=== PATIENT | female | born 1940 | race Caucasian/White ===

== ENCOUNTER 2016-07-09 07:55 | Inpatient (IN) | payer OTHER ==
[2016-05-28 11:48] VITALS: BMI 31.0
[2016-07-09] VITALS (9 sets, daily range): BP systolic 97–167; BP diastolic 44–68; PULSE 60–95; TEMP 36.4–36.9; O2SAT 93–99; Ht 160 cm; Wt 78.2 kg
[~2016-07-09] VITALS: Ht 160 cm; Wt 78.2 kg
[~2016-07-09 07:55] MED LIST: ALPR-411 PO; AMLH/550 PO; ASPI1TAB48 PO; ATOR-22 PO; ATROPINE SULFATE 0.1 MG/ML 5ML SYR IV PRN; CALC-354 PO; CARBIDOPA PO; CEFAZOLIN 2000 MG/60 ML D5W IV SCH; CHOL20005 PO; CITA10TA8 PO; COEN1CAP40 PO; CRAN1CAP13 PO; CYAN10005 PO; CeleBREX 200 MG CAP PO SCH; ENTACAPONE PO; EpHEDrine SULFATE INJ 50 MG/ML AMP IV PRN; GABA600T PO; IBUP-1428 PO; LACT10CA3 PO; LACTATED RINGER'S 1000ML 1,000 ML IV SCH; LEVODOPA PO; LISI-729 PO; MCRK20 PO; METF1TAB85 PO; MULTTAB5; OMEG10003 PO; ONDANSETRON INJ 2 MG/ML 2 ML VIAL IV PRN; PREGABALIN 75 MG CAP PO SCH; RASA1TAB PO; ROPI1TAB PO
[2016-07-09] MEDS ORDERED: FENTANYL CITRATE INJ 50 MCG/1 ML 2 ML VIAL ONE ×3 (09:43→11:27)
[2016-07-09] MEDS ORDERED: MIDAZOLAM HCL 1 MG/ML 2ML VIAL ONE (09:43)
[2016-07-09] MEDS ORDERED: THROMBIN FOR SOLN 20000 UNIT KIT ONE (10:09)
[2016-07-09] MEDS ORDERED: BUPIVACAINE/EPINEPHRINE 0.5% MPF 1:200,000 30 ML VIAL ONE (10:09)
[2016-07-09] MEDS ORDERED: BACITRACIN 50000 UNIT VIAL ONE (10:09)
[2016-07-09] MEDS ORDERED: THROMBIN 5000 UNITS KIT ONE (10:09)
[2016-07-09] MEDS ORDERED: HEPARIN SOD (PORCINE) 1000 UNIT/ML 10 ML VIAL ONE (10:09)
--- NOTE | 2016-07-09 10:11 | History and Physical ---
History & Physical Date Jul 09, 2016. Chief Complaint LBP and neurogenic claudication History of Present Illness The patient is a 75 year old female with complaints of above who had a prior L3- S1 PSF 3 years ago and did well until a fall this winter. She developed increased LBP with radiation into hips and legs bilaterally and failed to improve with rest, PT, and oral meds. MRI demonstrated L2-3 stenosis with disc degeneration. she denies incontinence or benny weakness. Past Medical/Surgical History HTN hi chol hiatal hernia parkinsons osteoporosis spinal stenosis lumbar fusion multiple depression BTL Appy Additional History Hepatic Disease: No Endocrine Disorder: No Kidney Disease: No Hypertension: Yes Heart Disease: No Bleeding Tendencies: No Infectious Diseases: No Allergies Coded Allergies: Propoxyphene (Verified Allergy, Severe, awake but couldn't move, 07/09/16) Cyclobenzaprine (Unverified Allergy, Unknown, per PCP records , 07/09/16) Meperidine (Verified Adverse Reaction, Unknown, NAUSEA/VOMITING, 07/09/16) Home Medications Scheduled Amiloride/Hctz (Moduretic 5-50MG), 1 TAB PO QAM Aspirin (Aspirin Low Dose), 81 MG PO QAM Atorvastatin (Lipitor), 20 MG PO HS Calcium Carbonate-Cholecalcife (Caltrate 600+D), 1 TAB PO HS Cholecalciferol (Vitamin D3), 2,000 PO QAM Citalopram Hydrobromide (Celexa), 10 MG PO HS Coenzyme Q10 (Ubidecarenone) (Co Q-10), 600 MG PO BID Cranberry-Vitamin C-Vitamin E (Cranberry Plus Vitamin C), 2 TAB PO TID Cyanocobalamin (Vitamin B-12), 1,000 MCG PO QAM Gabapentin (Neurontin), 1,200 MG PO TID Lactobacillus-Inulin (Culturelle), 1 TAB PO HS Lisinopril (Prinivil), 5 MG PO HS Metformin Hcl (Metformin Hcl Er), 500 MG PO BID [place]-3 Fatty Acids ([place] Oil-1000), 1,000 MG PO BID Potassium Chloride (Klor-Con), 20 MEQ PO BID Rasagiline Mesylate (Azilect), 1 MG PO QAM Ropinirole Hydrochloride (Ropinirole Er), 8 MG PO QAM [Carbi/Levod/Entaca], 1 TAB PO TID Scheduled PRN Alprazolam (Xanax), 0.5 MG PO Q6H PRN for Anxiety Ibuprofen (Motrin), 800 MG PO TID PRN for Pain Physical Examination Skin: warm/dry Eyes: normal inspection ENT: normal ENT inspection Head: normocephalic, atraumatic Neck: supple, trachea midline Respiratory/Chest: lungs clear, no respiratory distress Cardiovascular: regular rate, rhythm Back: normal inspection, + pertinent finding (midline scar) Extremities: normal inspection, normal range of motion Neurologic/Psych: no motor/sensory deficits (bilateral resting tremors), alert , normal reflexes, oriented x 3 Diagnosis L2-3 stenosis, prior L3-S1 PSF Plan of Treatment L2-3 decompression and extension of fusion to L2
[2016-07-09] MEDS ORDERED: LEVODOPA PO ONE ×3 (10:15→10:30)
[2016-07-09] MEDS ORDERED: CARBIDOPA PO ONE ×3 (10:15→10:30)
[2016-07-09] MEDS ORDERED: ENTACAPONE PO ONE ×3 (10:15→10:30)
[2016-07-09] MEDS ORDERED: HYDROmorphone INJ 2 MG/ML SYR/VIAL ONE ×2 (10:50→11:43)
[2016-07-09] MEDS ORDERED: ONDANSETRON INJ 2 MG/ML 2 ML VIAL ONE ×2 (11:16→11:43)
[2016-07-09] MEDS ORDERED: DEXAMETHASONE SOD INJ 4 MG/ML VIAL ONE (11:16)
[2016-07-09] MEDS ORDERED: PROPOFOL IV EMULSION 10 MG/ML 20 ML VIAL IV ONE (11:16)
[2016-07-09] MEDS ORDERED: EpHEDrine SULFATE 50MG/5ML SYR ONE (11:16)
[2016-07-09] MEDS ORDERED: LIDOCAINE HCL 2% 2 ML VIAL (20MG/ML) ONE (11:16)
[2016-07-09] MEDS ORDERED: ROCURONIUM BROMIDE 10 MG/ML 5 ML VIAL ONE (11:16)
[2016-07-09] MEDS ORDERED: GLYCOPYRROLATE INJ 0.2 MG/ML VIAL ONE (11:43)
[2016-07-09] MEDS ORDERED: NEOSTIGMINE METHYLSULFATE 1 MG/ML 10ML VIAL ONE (11:43)
[2016-07-09] MEDS ORDERED: KETOROLAC TROMETHAMINE 30 MG/ML VIAL ONE (11:43)
[2016-07-09] MEDS ORDERED: SODIUM CHLORIDE 0.9% 1000ML 1,000 ML IV SCH (11:47)
--- NOTE | 2016-07-09 11:47 | [facility] Post Operative Brief Note ---
Immediate Operative Summary Operative Date Jul 09, 2016. Pre-Operative Diagnosis L2-3 stenosis; L3-S1 Posterior Spinal Fusion Post-Operative Diagnosis L2-3 Stenosis; L3-S1 Posterior Spinal Fusion Procedure(s) Performed L2-L3 Decompression; Extension of Fusion to L2; Bone Marrow Aspirate; Autograft,Allograft, Arteriocyte, Removed Lumbar Hardware L3 Surgeon Dr. Melvin Gunn Manufacturing Industrial Engineer Surgeon(s) none Estimated Blood Loss 175ML Findings dict Specimens A. explanted hardware
[2016-07-09] MEDS ORDERED: BISACODYL 10 MG SUPP PR PRN (12:00)
[2016-07-09] MEDS ORDERED: SOD PHOSPHATE/SOD BIPHOSPHATE ENEMA 132 ML BTL PR PRN (12:00)
[2016-07-09] MEDS ORDERED: PROMETHAZINE HCL INJ 12.5 MG in SODIUM CHLORIDE 0.9% 50ML 50 ML IV PRN (12:00)
[2016-07-09] MEDS ORDERED: ALUMINUM/MAGNESIUM SUSP 30 ML UDC PO PRN (12:00)
[2016-07-09] MEDS ORDERED: ONDANSETRON INJ 2 MG/ML 2 ML VIAL IV PRN (12:00)
[2016-07-09] MEDS ORDERED: LORAZEPAM INJ 0.5 MG in SYRINGE 0.75 ML IV PRN (12:00)
[2016-07-09] MEDS ORDERED: MAGNESIUM HYDROXIDE SUSP 30 ML UDC PO PRN (12:00)
[2016-07-09] MEDS ORDERED: FAMOTIDINE 20 MG TAB PO PRN (12:00)
[2016-07-09] MEDS ORDERED: ACETAMINOPHEN IV 100 ML IV PRN (12:00)
[2016-07-09] MEDS ORDERED: HYDROmorphone INJ 0.5 MG/0.5 ML SYR IV PRN (12:00)
[2016-07-09] MEDS ORDERED: METOCLOPRAMIDE HCL INJ 5 MG/ML 2 ML VIAL IV PRN (12:00)
[2016-07-09] MEDS ORDERED: NALOXONE HCL 0.4 MG/1 ML VIAL/CARP IV PRN ×2 (12:00)
[2016-07-09] MEDS: FENTANYL CITRATE INJ 50 MCG/1 ML 2 ML VIAL IV PRN ×4 (12:07→12:22)
[2016-07-09] MEDS ORDERED: HYDROmorphone INJ 1 MG/ML SYR IV PRN (12:15)
[2016-07-09] MEDS: MoRPHine SULFATE 1 MG/ML 50 ML PCA CASS IV PRN ×4 (12:15→23:09)
--- NOTE | 2016-07-09 13:17 | Anesthesiology Progress Note ---
Anesthesia Post Op Note Date & Time Jul 09, 2016 at 13:17 Vital Signs Pain Intensity: 2 Vital Signs Past 12 Hours Date Time Temp Pulse Resp B/P Pulse Ox O2 Delivery O2 Flow Rate FiO2 07/09/16 13:05 98/49 07/09/16 13:04 64 18 07/09/16 13:04 64 18 96 07/09/16 13:00 107/47 07/09/16 12:59 65 22 07/09/16 12:59 65 22 91 07/09/16 12:55 106/52 07/09/16 12:54 62 15 07/09/16 12:54 63 15 94 07/09/16 12:50 103/48 07/09/16 12:49 68 24 97 07/09/16 12:49 68 24 07/09/16 12:45 102/46 07/09/16 12:44 63 16 94 07/09/16 12:44 66 16 07/09/16 12:43 36.2 07/09/16 12:40 71 20 123/42 92 07/09/16 12:40 73 20 07/09/16 12:38 103/40 07/09/16 12:35 67 23 90 07/09/16 12:35 74 23 07/09/16 12:31 105/52 07/09/16 12:30 69 21 07/09/16 12:30 21 07/09/16 12:25 66 22 99 07/09/16 12:25 66 22 07/09/16 12:22 117/46 07/09/16 12:20 66 21 99 07/09/16 12:20 Nasal Cannula 3 07/09/16 12:20 67 21 07/09/16 12:15 65 20 132/55 99 07/09/16 12:15 64 20 07/09/16 12:10 67 19 111/71 99 07/09/16 12:10 68 19 07/09/16 12:05 69 20 146/62 99 07/09/16 12:05 69 20 07/09/16 12:01 152/65 07/09/16 12:00 36.4 72 20 152/65 97 Mask 10 07/09/16 12:00 74 18 07/09/16 12:00 74 18 97 07/09/16 08:18 36.8 79 18 129/44 97 Notes Mental Status: alert / awake / arousable, participated in evaluation Pt Amnestic to Procedure: Yes Nausea / Vomiting: adequately controlled Pain: adequately controlled Airway Patency, RR, SpO2: stable & adequate BP & HR: stable & adequate Hydration State: stable & adequate Anesthetic Complications: no major complications apparent
[2016-07-09] MEDS: HYDROmorphone INJ 1 MG/ML SYR IV PRN ×2 (13:20→13:50)
--- NOTE | 2016-07-09 13:51 | DIAGNOSTIC IMAGING REPORT ---
LUMBAR SPINE, INTRAOPERATIVE FLUOROSCOPY HISTORY: L3 hardware. L2 fusion attached to L4.. FLUOROSCOPY TIME: 3 seconds. FINDINGS: Intraoperative fluoroscopy was provided for the lumbar spine. 3 fluoroscopic spot images were obtained. L3 pedicle screws have been removed. There is posterior fusion from L2 through S1 with pedicle screws and rods. The hardware appears intact. IMPRESSION: Fluoroscopy provided for a L2-S1 posterior fusion and removal of the L3 pedicle screws.. Electronically signed by: Thien Baez M.D. 07/09/2016 1:50 PM Dictated Date/Time: 07/09/2016 1:48 PM
[2016-07-09] MEDS: SODIUM CHLORIDE 0.9% 1000ML 1,000 ML IV SCH (15:34)
[2016-07-09] MEDS: LEVO PO SCH ×2 (15:35→21:00)
[2016-07-09] MEDS: ENTACAPONE PO SCH ×2 (15:35→21:00)
[2016-07-09] MEDS: CARB PO SCH ×2 (15:35→21:00)
[2016-07-09] MEDS: GABAPENTIN 600 MG TAB PO SCH ×2 (16:00→21:55)
[2016-07-09] MEDS ORDERED: GLUCOSE 10 TABS/TUBE PO PRN (16:45)
[2016-07-09] MEDS ORDERED: HydrALAZINE HCL 20 MG/ML VIAL IV. PRN (16:45)
[2016-07-09] MEDS ORDERED: GLUCAGON FOR INJ 1 MG VIAL SQ PRN (16:45)
[2016-07-09] MEDS ORDERED: DEXTROSE 50% 50 ML SYR IV PRN (16:45)
[2016-07-09] MEDS ORDERED: GLUCOSE 40% GEL 15 GM TUBE PO PRN (16:45)
[2016-07-09] MEDS: INSULIN ASPART 100 UNITS/ML 3 ML PEN SC SCH ×2 (17:15→21:58)
[2016-07-09 17:21] LABS: BASO % 0.1 %; BASO ABS # 0.01 K/uL (0-0.2); COMPLETE YES; IG% 0.4 %; LYMPH ABS # 0.62 K/uL (1.2-3.4); MEAN CELL VOLUME 87.1 fL (80-100); MEAN CORPUSCULAR HEMOGLOBIN 28.9 pg (25-34); MEAN CORPUSCULAR HGB CONC 33.1 g/dl (32-36); MEAN PLATELET VOLUME 9.8 fL (7.4-10.4); MONO % 1.6 %; NEUT % 92.9 %; PLATELET COUNT 270 K/uL (130-400); RED BLOOD COUNT 4.02 M/uL (4.2-5.4); WHITE BLOOD COUNT 12.46 K/uL (4.8-10.8)
[2016-07-09 17:48] LABS: BUN/CREATININE RATIO 40.2 (10-20); CALCIUM 8.6 mg/dl (8.5-10.1); CREATININE 1.1 mg/dl (0.60-1.20)
[2016-07-09] MEDS: CEFAZOLIN IV 1,000 MG in DEXTROSE 5% 50ML 50 ML IV SCH (18:22)
--- NOTE | 2016-07-09 19:47 | Medical Consult ---
Consultation Date of Consultation: Jul 09, 2016. Attending Physician: Melvin Gunn M.D. Reason for Consultation: Medical management History of Present Illness This is a 75 y/o female with a history of Parkinson's disease, DM II, hypertension, hyperlipidemia, and depression who presents s/p L2 to L3 decompression and fusion with Dr. Gunn on 07/09 for medical management. The patient complains of some soreness in her back at the surgical site. She states that she is otherwise feeling well postoperatively. She has not yet eaten, passed gas, or had a bowel movement. Hawley catheter is in place and draining clear urine. The patient notes that her parkinsonian tremors have been worse lately as she had been advised to stop her rasagiline due to her surgery. Patient denies fevers, chills, sweats, chest pain, palpitations, claudication, cough, wheezing, shortness of breath, nausea, vomiting, abdominal pain, dysuria, hematuria, urinary retention, paralysis, weakness, numbness and tingling. Family History Lung cancer Lung disease Pancreatic cancer Social History Smoking Status: Never Smoker Smokeless Tobacco Use: No Alcohol Use: occasionally (wine) Drug Use: none Marital Status: Housing Status: lives with significant other Occupation Status: retired Allergies Coded Allergies: Propoxyphene (Verified Allergy, Severe, awake but couldn't move, 07/09/16) Cyclobenzaprine (Unverified Allergy, Unknown, per PCP records , 07/09/16) Meperidine (Verified Adverse Reaction, Unknown, NAUSEA/VOMITING, 07/09/16) Current Inpatient Medications Current Inpatient Medications Medications (Trade) Dose Ordered Sig/Lara Route Start Time Stop Time Status Last Admin Dose Admin Celecoxib (CeleBREX CAP) 200 mg PREOP PO 07/09/16 06:00 07/09/16 23:59 Pregabalin (Lyrica Cap) 75 mg PREOP PO 07/09/16 06:00 07/09/16 23:59 07/09/16 09:04 75 MG Amiloride/HCTZ (Moduretic 5-50MG Tab) 1 tab QAM PO 07/10/16 09:00 08/09/16 08:59 Future Hold Aspirin (Ecotrin Tab) 81 mg QAM PO 07/10/16 09:00 08/09/16 08:59 Atorvastatin Calcium (Lipitor Tab) 20 mg HS PO 07/09/16 21:00 08/08/16 20:59 Citalopram Hydrobromide (celeXA TAB) 10 mg HS PO 07/09/16 21:00 08/08/16 20:59 Cyanocobalamin (Vitamin B-12 Tab) 1,000 mcg QAM PO 07/10/16 09:00 08/09/16 08:59 Gabapentin (Neurontin Tab) 1,200 mg TID PO 07/09/16 14:00 08/08/16 13:59 07/09/16 16:00 1,200 MG Potassium Chloride (Klor-Con Tab) 20 meq BID PO 07/09/16 21:00 08/08/16 20:59 Rasagiline (Azilect) 1 mg QAM PO 07/10/16 09:00 08/09/16 08:59 Non-Formulary Medication 1 ea 1 ea TID PO 07/09/16 14:00 08/08/16 13:59 07/09/16 15:35 1 EA Promethazine HCl/ Sodium Chloride (Phenergan Inj/ Nss 50ml) 50.5 ml @ 202 mls/hr Q6H PRN IV 07/09/16 12:00 08/08/16 11:59 Ondansetron HCl (Zofran Inj) 4 mg Q6H PRN IV 07/09/16 12:00 08/08/16 11:59 Metoclopramide HCl (Reglan Inj) 10 mg Q6H PRN IV 07/09/16 12:00 08/08/16 11:59 Lorazepam 0.5 mg 0.5 mg Q8H PRN PO 07/09/16 12:00 08/08/16 11:59 Lorazepam 0.5 mg/ Syringe 1 ml @ 1 mls/min Q8H PRN IV 07/09/16 12:00 08/08/16 11:59 Sodium Chloride (Nss 1000ml) 1,000 ml @ 75 mls/hr Q13P01N IV 07/09/16 11:47 08/08/16 11:46 07/09/16 15:34 75 MLS/HR Polyethylene (Miralax Powder Packet) 17 gm Q6 PO 07/11/16 06:00 08/10/16 05:59 Bisacodyl (Dulcolax Supp) 10 mg DAILY PRN MA 07/09/16 12:00 08/08/16 11:59 Magnesium Hydroxide (Milk Of Magnesia Susp) 30 ml DAILY PRN PO 07/09/16 12:00 08/08/16 11:59 Hydromorphone HCl 0.5 mg 0.5 mg Q3H PRN IV 07/09/16 12:00 07/23/16 11:59 Future Hold Cefazolin Sodium/ Dextrose (Ancef Iv/D5 50ml) 55 ml @ 100 mls/hr Q8H IV 07/09/16 18:00 07/10/16 02:32 07/09/16 18:22 100 MLS/HR Acetaminophen 1000 mg 1,000 mg Q8H PRN PO 07/09/16 12:00 08/08/16 11:59 Acetaminophen (Ofirmev Iv) 100 ml @ 400 mls/hr Q8H PRN IV 07/09/16 12:00 08/08/16 11:59 Naloxone HCl (Narcan Inj) 0.1 mg Q5M PRN IV 07/09/16 12:00 08/08/16 11:59 Senna/Docusate Sodium (Senokot S Tab) 2 tab HS PO 07/09/16 21:00 08/08/16 20:59 Sodium Biphosphate/ Sodium Phosphate (Fleet Enema) 132 ml ONE PRN MA 07/09/16 12:00 Al Hydroxide/Mg Hydroxide (Maalox Susp) 30 ml Q6H PRN PO 07/09/16 12:00 08/08/16 11:59 Famotidine (Pepcid Tab) 20 mg Q12 PRN PO 07/09/16 12:00 08/08/16 11:59 Diphenhydramine HCl (Benadryl Cap) 25 mg Q6H PRN PO 07/09/16 12:00 08/08/16 11:59 Naloxone HCl (Narcan Inj) 0.1 mg Q5M PRN IV 07/09/16 12:00 07/23/16 11:59 Morphine Sulfate 50 mg 50 mg PRN PRN IV 07/09/16 12:00 07/23/16 11:59 07/09/16 15:17 50 MG Sodium Chloride (Nss 1000ml) 1,000 ml @ 15 mls/hr Q24H IV 07/09/16 11:47 07/23/16 11:59 Hydromorphone HCl (Dilaudid Inj) 1 mg Q3H PRN IV 07/09/16 12:15 07/23/16 12:14 Future Hold Hydralazine HCl (HydrALAZINE INJ) 10 mg Q6H PRN IV. 07/09/16 16:45 08/08/16 16:44 Insulin Aspart (novoLOG ASPART) SLIDING SCALE If C... ACHS SC 07/09/16 17:15 08/08/16 17:14 Glucose (Glucose 40% Gel) 15-30 GRAMS 15 GRAMS... UD PRN PO 07/09/16 16:45 08/08/16 16:44 Glucose (Glucose Chew Tab) 4-8 Tablets 4 Tabl... UD PRN PO 07/09/16 16:45 08/08/16 16:44 Dextrose (Dextrose 50% 50ML Syringe) 25-50ML OF 50% DW IV FOR... UD PRN IV 07/09/16 16:45 08/08/16 16:44 Glucagon (Glucagon Inj) 1 mg UD PRN SQ 07/09/16 16:45 08/08/16 16:44 Review of Systems See HPI for pertinent positives and negatives. All other systems reviewed and negative. Physical Exam Date Time Temp Pulse Resp B/P Pulse Ox O2 Delivery O2 Flow Rate FiO2 07/09/16 18:51 36.4 73 16 97/58 95 Nasal Cannula 2.0 07/09/16 17:55 36.9 95 20 109/65 99 Nasal Cannula 4.0 07/09/16 17:32 36.6 69 18 167/55 95 Nasal Cannula 2.0 07/09/16 16:30 36.5 67 16 101/58 96 Nasal Cannula 2.0 07/09/16 15:30 36.8 60 18 100/59 95 2.0 07/09/16 15:00 36.8 60 18 105/52 95 Nasal Cannula 2.0 07/09/16 14:30 Nasal Cannula 07/09/16 14:30 36.8 67 18 118/68 96 Nasal Cannula 2.0 07/09/16 14:30 Nasal Cannula 2.0 07/09/16 14:15 112/45 07/09/16 14:11 66 18 07/09/16 14:11 67 18 07/09/16 14:10 103/44 07/09/16 14:06 61 16 95 07/09/16 14:06 63 16 07/09/16 14:05 105/42 07/09/16 14:01 67 14 96 07/09/16 14:01 67 14 07/09/16 14:00 104/43 07/09/16 13:56 64 16 07/09/16 13:56 66 16 96 07/09/16 13:55 99/45 07/09/16 13:51 66 16 07/09/16 13:51 16 07/09/16 13:50 96/44 07/09/16 13:46 64 16 07/09/16 13:46 61 16 94 07/09/16 13:45 105/52 07/09/16 13:41 68 19 93 07/09/16 13:41 68 19 07/09/16 13:40 107/45 07/09/16 13:36 67 24 07/09/16 13:36 68 24 94 07/09/16 13:35 105/47 07/09/16 13:31 72 24 07/09/16 13:31 67 24 91 07/09/16 13:30 104/47 07/09/16 13:26 64 19 07/09/16 13:26 66 19 94 07/09/16 13:25 103/43 07/09/16 13:21 67 20 07/09/16 13:21 67 20 07/09/16 13:20 100/46 07/09/16 13:16 63 19 96 07/09/16 13:16 62 19 07/09/16 13:15 102/49 07/09/16 13:11 66 16 07/09/16 13:11 67 16 97 07/09/16 13:10 109/45 07/09/16 13:06 67 25 92 07/09/16 13:06 67 25 07/09/16 13:05 98/49 07/09/16 13:04 64 18 07/09/16 13:04 64 18 96 07/09/16 13:00 107/47 07/09/16 12:59 65 22 07/09/16 12:59 65 22 91 07/09/16 12:55 106/52 07/09/16 12:54 62 15 07/09/16 12:54 63 15 94 07/09/16 12:50 103/48 07/09/16 12:49 68 24 97 07/09/16 12:49 68 24 07/09/16 12:45 102/46 07/09/16 12:44 63 16 94 07/09/16 12:44 66 16 07/09/16 12:43 36.2 07/09/16 12:40 71 20 123/42 92 07/09/16 12:40 73 20 07/09/16 12:38 103/40 07/09/16 12:35 67 23 90 07/09/16 12:35 74 23 07/09/16 12:31 105/52 07/09/16 12:30 69 21 07/09/16 12:30 21 07/09/16 12:25 66 22 99 07/09/16 12:25 66 22 07/09/16 12:22 117/46 07/09/16 12:20 66 21 99 07/09/16 12:20 Nasal Cannula 3 07/09/16 12:20 67 21 07/09/16 12:15 65 20 132/55 99 07/09/16 12:15 64 20 07/09/16 12:10 67 19 111/71 99 07/09/16 12:10 68 19 07/09/16 12:05 69 20 146/62 99 07/09/16 12:05 69 20 07/09/16 12:01 152/65 07/09/16 12:00 36.4 72 20 152/65 97 Mask 10 07/09/16 12:00 74 18 07/09/16 12:00 74 18 97 07/09/16 08:18 36.8 79 18 129/44 97 General Appearance: WD/WN, no apparent distress, + obese Head: normocephalic, atraumatic Eyes: normal inspection, PERRL, EOMI ENT: normal ENT inspection, hearing grossly normal, pharynx normal Neck: supple, no JVD, trachea midline Respiratory/Chest: lungs clear, normal breath sounds, no respiratory distress Cardiovascular: regular rate, rhythm, no gallop, no murmur Abdomen/GI: normal bowel sounds, non tender, soft Extremities/Musculoskelatal: normal inspection, no calf tenderness, no pedal edema Neurologic/Psych: alert, normal mood/affect, oriented x 3, + pertinent finding (tremors, masked facies of Parkinson's) Skin: normal color, warm/dry, no rash Laboratory Results Last 24 Hours Test 07/09/16 09:16 07/09/16 12:08 07/09/16 14:23 07/09/16 16:54 Bedside Glucose 126 mg/dl 185 mg/dl 185 mg/dl 159 mg/dl Test 07/09/16 17:00 White Blood Count 12.46 K/uL Red Blood Count 4.02 M/uL Hemoglobin 11.6 g/dL Hematocrit 35.0 % Mean Corpuscular Volume 87.1 fL Mean Corpuscular Hemoglobin 28.9 pg Mean Corpuscular Hemoglobin Concent 33.1 g/dl Platelet Count 270 K/uL Mean Platelet Volume 9.8 fL Neutrophils (%) (Auto) 92.9 % Lymphocytes (%) (Auto) 5.0 % Monocytes (%) (Auto) 1.6 % Eosinophils (%) (Auto) 0.0 % Basophils (%) (Auto) 0.1 % Neutrophils # (Auto) 11.58 K/uL Lymphocytes # (Auto) 0.62 K/uL Monocytes # (Auto) 0.20 K/uL Eosinophils # (Auto) 0.00 K/uL Basophils # (Auto) 0.01 K/uL RDW Standard Deviation 44.3 fL RDW Coefficient of Variation 13.9 % Immature Granulocyte % (Auto) 0.4 % Immature Granulocyte # (Auto) 0.05 K/uL Sodium Level 136 mmol/L Potassium Level 5.0 mmol/L Chloride Level 101 mmol/L Carbon Dioxide Level 27 mmol/L Anion Gap 8.0 mmol/L Blood Urea Nitrogen 44 mg/dl Creatinine 1.10 mg/dl Est Creatinine Clear Calc Drug Dose 42.4 ml/min Estimated GFR () 56.1 Estimated GFR (Non- 48.4 BUN/Creatinine Ratio 40.2 Random Glucose 164 mg/dl Calcium Level 8.6 mg/dl Assessment & Plan 75 y/o female with a history of Parkinson's disease, DM II, hypertension, hyperlipidemia, and depression who presents s/p L2 to L3 decompression and fusion with Dr. Gunn on 07/09 for medical management. -Pain management, DVT prophylaxis, and PT/OT as per primary team Parkinson's disease -Continue rasagiline 1 mg PO qd, ropinirole 8 mg PO qd, and carbidopa/levodopa/ entacapone 31.25/125/200 PO TID Diabetes mellitus type 2--unknown last hemoglobin A1c -Hold metformin -Insulin sliding scale -Check BSGs q ac and qhs -Check hemoglobin A1c HTN--stable -Hold amiloride/HCTZ while receiving IV fluids -Hold lisinopril until renal function checked and stable -Cover with hydralazine 10 mg IV q6h prn SBP >180 HLD -Continue atorvastatin 20 mg PO qd Depression -Continue Celexa 10 mg PO qd Code Status -Level I, FULL RESUSCITATION STATUS Thank you for this consultation. We will continue to follow. I agree with PA assessment and plan and have seen and examined pt Consulted for medical management s/p lumbar surgery Hypertensive at this time Cont meds for parkinsons ISS for DM II
[2016-07-09] MEDS: ATORVASTATIN 20 MG TAB PO SCH (21:54)
[2016-07-09] MEDS: DOCUSATE SODIUM/SENNA 50/8.6MG TAB PO SCH (21:55)
[2016-07-09] MEDS: POTASSIUM CHLORIDE 20 MEQ TABCR PO SCH (21:55)
[2016-07-09] MEDS: CITALOPRAM 20 MG TAB PO SCH (21:56)
[2016-07-09] MEDS ORDERED: NURSING DECISION MEDICATION ORDER SCH (23:00)
[2016-07-09] MEDS ORDERED: COUGH DROP (SUGAR FREE) LOZ 24 LOZ/1 BOX ONE (23:21)
[2016-07-10] VITALS (9 sets, daily range): BP systolic 102–120; BP diastolic 50–78; PULSE 60–71; TEMP 36.4–36.8; O2SAT 92–100
[2016-07-10] MEDS ORDERED: COUGH DROP (SUGAR FREE) LOZ 24 LOZ/1 BOX PO PRN (00:15)
[2016-07-10] MEDS: CEFAZOLIN IV 1,000 MG in DEXTROSE 5% 50ML 50 ML IV SCH (01:36)
[2016-07-10] MEDS: SODIUM CHLORIDE 0.9% 1000ML 1,000 ML IV SCH (01:36)
[2016-07-10] MEDS ORDERED: OXYCODONE HCL IR 5 MG TAB (IMMEDIATE RELEASE) PO PRN ×2 (06:00→10:15)
[2016-07-10 06:07] LABS: COMPLETE YES; HEMATOCRIT 30.7 % (37-47); IG% 0.3 %; LYMPH % 7.9 %; LYMPH ABS # 0.87 K/uL (1.2-3.4); MEAN CORPUSCULAR HGB CONC 32.9 g/dl (32-36); MEAN PLATELET VOLUME 9.7 fL (7.4-10.4); MONO % 10.8 %; PLATELET COUNT 252 K/uL (130-400); RED BLOOD COUNT 3.61 M/uL (4.2-5.4)
[2016-07-10 06:33] LABS: ESTIMATED AVERAGE GLUCOSE 131 mg/dl; HA1C FLAG Normal (Normal)
[2016-07-10 06:36] LABS: BUN/CREATININE RATIO 38.6 (10-20); CALCIUM 8.5 mg/dl (8.5-10.1); CREATININE 0.87 mg/dl (0.60-1.20); POTASSIUM 4.5 mmol/L (3.5-5.1)
[2016-07-10] MEDS: MoRPHine SULFATE 1 MG/ML 50 ML PCA CASS IV PRN (06:58)
[2016-07-10] MEDS ORDERED: NURSING VERBAL MED ORDER ONE ×4 (07:00→14:45)
[2016-07-10] MEDS ORDERED: MICONAZOLE NITRATE POWDER 43 GM EXT PRN (07:15)
[2016-07-10] MEDS: ENTACAPONE PO SCH ×3 (07:24→16:38)
[2016-07-10] MEDS: CARB PO SCH ×3 (07:24→16:38)
[2016-07-10] MEDS: LEVO PO SCH ×3 (07:24→16:38)
--- NOTE | 2016-07-10 07:32 | Hospitalist Progress Note ---
Hospitalist Progress Note Date of Service Jul 10, 2016. Subjective Pt evaluation today including: conversation w/ patient, physical exam, chart review, lab review, review of studies, conversation w/ quantitative consultant Pain: minimal low back pain PO Intake: good Voiding: lujan catheter in place The patient was seen and examined this morning. Patient reports feeling well. She reports some soreness in her lower back but states "this is normal". She has been able to ambulate about the room without any difficulty. Tolerated breakfast fine. She denies having any chest pain, chest tightness, abdominal pain, shortness of breath, nausea, vomiting, diarrhea, or constipation. The patient make appointment coming her insurance won't cover admission, she states for 3 midnight, and she is requesting rehabilitation at time of discharge. Additional Comments: ROS: Constitutional: No fever, chills, sweats, fatigue or weakness, + overweight Eyes: No diplopia, no changes in vision ENT: No sore throat, tinnitus, or trouble swallowing Respiratory: No shortness of breath, No dyspnea at rest or on exertion, no cough or sputum Cardiovascular: No chest pain, palpitations, or flutter Abdomen: No pain, No constipation, No diarrhea, No nausea, No vomiting Musculoskeletal: No calf pain, No joint pain, No swelling Genitourinary : No dysuria or urinary frequency, No hematuria + Lujan catheter in place Neurologic: No numbness/tingling, no difficulty with ambulation, no sensory or motor deficits Psychiatric: No depression or anxiety symptoms Endocrine: No fatigue, No weight changes Integumentary: No itch, No rash Objective Vital Signs Date Time Temp Pulse Resp B/P Pulse Ox O2 Delivery O2 Flow Rate FiO2 07/10/16 03:20 36.8 71 16 108/62 95 Nasal Cannula 2.0 07/09/16 23:20 Nasal Cannula 2.0 07/09/16 23:00 36.6 72 18 103/59 93 Nasal Cannula 2.0 07/09/16 18:51 36.4 73 16 97/58 95 Nasal Cannula 2.0 07/09/16 17:55 36.9 95 20 109/65 99 Nasal Cannula 4.0 07/09/16 17:32 36.6 69 18 167/55 95 Nasal Cannula 2.0 07/09/16 16:30 36.5 67 16 101/58 96 Nasal Cannula 2.0 07/09/16 15:36 Nasal Cannula 2.0 07/09/16 15:30 36.8 60 18 100/59 95 2.0 07/09/16 15:00 36.8 60 18 105/52 95 Nasal Cannula 2.0 07/09/16 14:30 Nasal Cannula 07/09/16 14:30 36.8 67 18 118/68 96 Nasal Cannula 2.0 07/09/16 14:30 Nasal Cannula 2.0 07/09/16 14:15 112/45 07/09/16 14:11 66 18 07/09/16 14:11 67 18 07/09/16 14:10 103/44 07/09/16 14:06 61 16 95 07/09/16 14:06 63 16 07/09/16 14:05 105/42 07/09/16 14:01 67 14 96 07/09/16 14:01 67 14 07/09/16 14:00 104/43 07/09/16 13:56 64 16 07/09/16 13:56 66 16 96 07/09/16 13:55 99/45 07/09/16 13:51 66 16 07/09/16 13:51 16 07/09/16 13:50 96/44 07/09/16 13:46 64 16 07/09/16 13:46 61 16 94 07/09/16 13:45 105/52 07/09/16 13:41 68 19 93 07/09/16 13:41 68 19 07/09/16 13:40 107/45 07/09/16 13:36 67 24 07/09/16 13:36 68 24 94 07/09/16 13:35 105/47 07/09/16 13:31 72 24 07/09/16 13:31 67 24 91 07/09/16 13:30 104/47 07/09/16 13:26 64 19 07/09/16 13:26 66 19 94 07/09/16 13:25 103/43 07/09/16 13:21 67 20 07/09/16 13:21 67 20 07/09/16 13:20 100/46 07/09/16 13:16 63 19 96 07/09/16 13:16 62 19 07/09/16 13:15 102/49 3/23/17 13:11 66 16 07/09/16 13:11 67 16 97 07/09/16 13:10 109/45 07/09/16 13:06 67 25 92 07/09/16 13:06 67 25 07/09/16 13:05 98/49 07/09/16 13:04 64 18 07/09/16 13:04 64 18 96 07/09/16 13:00 107/47 07/09/16 12:59 65 22 07/09/16 12:59 65 22 91 07/09/16 12:55 106/52 07/09/16 12:54 62 15 07/09/16 12:54 63 15 94 07/09/16 12:50 103/48 07/09/16 12:49 68 24 97 07/09/16 12:49 68 24 07/09/16 12:45 102/46 07/09/16 12:44 63 16 94 07/09/16 12:44 66 16 07/09/16 12:43 36.2 07/09/16 12:40 71 20 123/42 92 07/09/16 12:40 73 20 07/09/16 12:38 103/40 07/09/16 12:35 67 23 90 07/09/16 12:35 74 23 07/09/16 12:31 105/52 07/09/16 12:30 69 21 07/09/16 12:30 21 07/09/16 12:25 66 22 99 07/09/16 12:25 66 22 07/09/16 12:22 117/46 07/09/16 12:20 66 21 99 07/09/16 12:20 Nasal Cannula 3 07/09/16 12:20 67 21 07/09/16 12:15 65 20 132/55 99 07/09/16 12:15 64 20 07/09/16 12:10 67 19 111/71 99 07/09/16 12:10 68 19 07/09/16 12:05 69 20 146/62 99 07/09/16 12:05 69 20 07/09/16 12:01 152/65 07/09/16 12:00 36.4 72 20 152/65 97 Mask 10 07/09/16 12:00 74 18 07/09/16 12:00 74 18 97 07/09/16 08:18 36.8 79 18 129/44 97 Physical Exam Notes: Physical exam General: awake, alert, no apparent distress Head: Normocephalic, atraumatic ENT: PERRL, EOMI, no pharyngeal exudate, mucous membranes moist Chest: Clear to auscultation, on room air, no adventitious breath sounds Cardiac: Regular rate and rhythm, no murmur, no JVD, normal peripheral pulses, good capillary refill Abdominal: NABS x 4 quadrants, soft, nontender, no rebound, guarding or tenderness Back: back with bandage in place, no focal point tenderness along spine, + EDI drain in place Extremities: Normal inspection, no peripheral edema or erythema, calfs nontender to palpation Psych: Normal mood and affect Neuro: AAO x 3, + Parkinson's disease with mild resting tremor, speech is clear Laboratory Results Last 24 Hours Test 07/09/16 09:16 07/09/16 12:08 07/09/16 14:23 07/09/16 16:54 Bedside Glucose 126 mg/dl 185 mg/dl 185 mg/dl 159 mg/dl Test 07/09/16 17:00 07/09/16 21:03 07/10/16 05:26 White Blood Count 12.46 K/uL 11.00 K/uL Red Blood Count 4.02 M/uL 3.61 M/uL Hemoglobin 11.6 g/dL 10.1 g/dL Hematocrit 35.0 % 30.7 % Mean Corpuscular Volume 87.1 fL 85.0 fL Mean Corpuscular Hemoglobin 28.9 pg 28.0 pg Mean Corpuscular Hemoglobin Concent 33.1 g/dl 32.9 g/dl Platelet Count 270 K/uL 252 K/uL Mean Platelet Volume 9.8 fL 9.7 fL Neutrophils (%) (Auto) 92.9 % 81.0 % Lymphocytes (%) (Auto) 5.0 % 7.9 % Monocytes (%) (Auto) 1.6 % 10.8 % Eosinophils (%) (Auto) 0.0 % 0.0 % Basophils (%) (Auto) 0.1 % 0.0 % Neutrophils # (Auto) 11.58 K/uL 8.91 K/uL Lymphocytes # (Auto) 0.62 K/uL 0.87 K/uL Monocytes # (Auto) 0.20 K/uL 1.19 K/uL Eosinophils # (Auto) 0.00 K/uL 0.00 K/uL Basophils # (Auto) 0.01 K/uL 0.00 K/uL RDW Standard Deviation 44.3 fL 42.8 fL RDW Coefficient of Variation 13.9 % 13.8 % Immature Granulocyte % (Auto) 0.4 % 0.3 % Immature Granulocyte # (Auto) 0.05 K/uL 0.03 K/uL Sodium Level 136 mmol/L 138 mmol/L Potassium Level 5.0 mmol/L 4.5 mmol/L Chloride Level 101 mmol/L 103 mmol/L Carbon Dioxide Level 27 mmol/L 28 mmol/L Anion Gap 8.0 mmol/L 7.0 mmol/L Blood Urea Nitrogen 44 mg/dl 34 mg/dl Creatinine 1.10 mg/dl 0.87 mg/dl Est Creatinine Clear Calc Drug Dose 42.4 ml/min 53.6 ml/min Estimated GFR () 56.1 74.5 Estimated GFR (Non- 48.4 64.3 BUN/Creatinine Ratio 40.2 38.6 Random Glucose 164 mg/dl 134 mg/dl Estimated Average Glucose 131 mg/dl Hemoglobin A1c 6.2 % Calcium Level 8.6 mg/dl 8.5 mg/dl Bedside Glucose 203 mg/dl Assessment and Plan 75 y/o female with a history of Parkinson's disease, DM II, hypertension, hyperlipidemia, and depression who presents s/p L2 to L3 decompression and fusion with Dr. Gunn on 07/09 for medical management. L2 to L3 decompression and fusion with Dr. Dr. Lizarraga on 07/09/16 - Postop day #2 - Pain management, DVT prophylaxis, and PT/OT as per primary team - Patient states her pain is well controlled at this time Parkinson's disease -Continue rasagiline 1 mg PO qd, ropinirole 8 mg PO qd, and carbidopa/levodopa/ entacapone 31.25/125/200 PO TID DM type II -Hold metformin -Insulin sliding scale -Check BSGs q ac and qhs - Hgb A1C=6.2 HTN--stable -Hold amiloride/HCTZ while receiving IV fluids -Hold lisinopril until renal function checked and stable -Cover with hydralazine 10 mg IV q6h prn SBP >180 HLD -Continue atorvastatin 20 mg PO qd Depression -Continue Celexa 10 mg PO qd CODE STATUS: FULL CODE Disposition: Will need rehab after admission stay, await 3 midnight ROBERT yi to assist discharge planning
[2016-07-10] MEDS: INSULIN ASPART 100 UNITS/ML 3 ML PEN SC SCH ×4 (08:00→21:30)
[2016-07-10] MEDS ORDERED: AMILORIDE/HCTZ 5-50 MG TAB PO SCH (09:00)
[2016-07-10] MEDS ORDERED: CYANOCOBALAMIN 500 MCG TAB (VIT B-12) PO SCH (09:00)
[2016-07-10] MEDS: ASPIRIN 81 MG ECTAB PO SCH (09:24)
[2016-07-10] MEDS: GABAPENTIN 600 MG TAB PO SCH ×3 (09:25→18:21)
[2016-07-10] MEDS: ROPINIROLE HYDROCHLORIDE PO SCH (09:25)
[2016-07-10] MEDS: POTASSIUM CHLORIDE 20 MEQ TABCR PO SCH ×2 (09:25→18:21)
--- NOTE | 2016-07-10 09:41 | Orthopedic Progress Note ---
Orthopedic Progress Note Date of Service Jul 10, 2016. Subjective Post OP Day: 1 Reports: feeling well, using MALE IMPERSONATOR, Denies: SOB, calf pain, chest pain, complaints , light headedness, nausea / vomiting Objective calves soft nontender, N/V intact, dressing C/D/I, A&O x3, hemovac drainage Date Time Temp Pulse Resp B/P Pulse Ox O2 Delivery O2 Flow Rate FiO2 07/10/16 08:00 Nasal Cannula 2.0 07/10/16 07:57 36.5 62 20 114/70 98 Nasal Cannula 2.0 07/10/16 03:20 36.8 71 16 108/62 95 Nasal Cannula 2.0 07/09/16 23:20 Nasal Cannula 2.0 07/09/16 23:00 36.6 72 18 103/59 93 Nasal Cannula 2.0 07/09/16 18:51 36.4 73 16 97/58 95 Nasal Cannula 2.0 07/09/16 17:55 36.9 95 20 109/65 99 Nasal Cannula 4.0 07/09/16 17:32 36.6 69 18 167/55 95 Nasal Cannula 2.0 07/09/16 16:30 36.5 67 16 101/58 96 Nasal Cannula 2.0 07/09/16 15:36 Nasal Cannula 2.0 07/09/16 15:30 36.8 60 18 100/59 95 2.0 07/09/16 15:00 36.8 60 18 105/52 95 Nasal Cannula 2.0 07/09/16 14:30 Nasal Cannula 07/09/16 14:30 36.8 67 18 118/68 96 Nasal Cannula 2.0 07/09/16 14:30 Nasal Cannula 2.0 07/09/16 14:15 112/45 07/09/16 14:11 66 18 07/09/16 14:11 67 18 07/09/16 14:10 103/44 07/09/16 14:06 61 16 95 07/09/16 14:06 63 16 07/09/16 14:05 105/42 07/09/16 14:01 67 14 96 07/09/16 14:01 67 14 07/09/16 14:00 104/43 07/09/16 13:56 64 16 07/09/16 13:56 66 16 96 07/09/16 13:55 99/45 3/23/17 13:51 66 16 07/09/16 13:51 16 07/09/16 13:50 96/44 07/09/16 13:46 64 16 07/09/16 13:46 61 16 94 07/09/16 13:45 105/52 07/09/16 13:41 68 19 93 07/09/16 13:41 68 19 07/09/16 13:40 107/45 07/09/16 13:36 67 24 07/09/16 13:36 68 24 94 07/09/16 13:35 105/47 07/09/16 13:31 72 24 07/09/16 13:31 67 24 91 07/09/16 13:30 104/47 07/09/16 13:26 64 19 07/09/16 13:26 66 19 94 07/09/16 13:25 103/43 07/09/16 13:21 67 20 07/09/16 13:21 67 20 07/09/16 13:20 100/46 07/09/16 13:16 63 19 96 07/09/16 13:16 62 19 07/09/16 13:15 102/49 07/09/16 13:11 66 16 07/09/16 13:11 67 16 97 07/09/16 13:10 109/45 07/09/16 13:06 67 25 92 07/09/16 13:06 67 25 07/09/16 13:05 98/49 07/09/16 13:04 64 18 07/09/16 13:04 64 18 96 07/09/16 13:00 107/47 07/09/16 12:59 65 22 07/09/16 12:59 65 22 91 07/09/16 12:55 106/52 07/09/16 12:54 62 15 07/09/16 12:54 63 15 94 07/09/16 12:50 103/48 07/09/16 12:49 68 24 97 07/09/16 12:49 68 24 07/09/16 12:45 102/46 07/09/16 12:44 63 16 94 07/09/16 12:44 66 16 07/09/16 12:43 36.2 07/09/16 12:40 71 20 123/42 92 07/09/16 12:40 73 20 07/09/16 12:38 103/40 07/09/16 12:35 67 23 90 07/09/16 12:35 74 23 07/09/16 12:31 105/52 07/09/16 12:30 69 21 07/09/16 12:30 21 07/09/16 12:25 66 22 99 07/09/16 12:25 66 22 07/09/16 12:22 117/46 07/09/16 12:20 66 21 99 07/09/16 12:20 Nasal Cannula 3 07/09/16 12:20 67 21 07/09/16 12:15 65 20 132/55 99 07/09/16 12:15 64 20 07/09/16 12:10 67 19 111/71 99 07/09/16 12:10 68 19 07/09/16 12:05 69 20 146/62 99 07/09/16 12:05 69 20 07/09/16 12:01 152/65 07/09/16 12:00 36.4 72 20 152/65 97 Mask 10 07/09/16 12:00 74 18 07/09/16 12:00 74 18 97 Laboratory Results 24 Hours: Test 07/09/16 17:00 07/10/16 05:26 White Blood Count 12.46 K/uL 11.00 K/uL Red Blood Count 4.02 M/uL 3.61 M/uL Hemoglobin 11.6 g/dL 10.1 g/dL Hematocrit 35.0 % 30.7 % Mean Corpuscular Volume 87.1 fL 85.0 fL Mean Corpuscular Hemoglobin 28.9 pg 28.0 pg Mean Corpuscular Hemoglobin Concent 33.1 g/dl 32.9 g/dl Platelet Count 270 K/uL 252 K/uL Mean Platelet Volume 9.8 fL 9.7 fL Neutrophils (%) (Auto) 92.9 % 81.0 % Lymphocytes (%) (Auto) 5.0 % 7.9 % Monocytes (%) (Auto) 1.6 % 10.8 % Eosinophils (%) (Auto) 0.0 % 0.0 % Basophils (%) (Auto) 0.1 % 0.0 % Neutrophils # (Auto) 11.58 K/uL 8.91 K/uL Lymphocytes # (Auto) 0.62 K/uL 0.87 K/uL Monocytes # (Auto) 0.20 K/uL 1.19 K/uL Eosinophils # (Auto) 0.00 K/uL 0.00 K/uL Basophils # (Auto) 0.01 K/uL 0.00 K/uL Assessment & Plan Assessment: looks good POD 1, start PT, scd's, bowel regimen, d/c wednesday to rehab? if medically stable, medicine on board Discharge Planning Discharge Planning: home Pain Management: Oxy IR DVT Prophylaxis: SCDs
[2016-07-10] MEDS: RASAGILINE 0.5 MG TAB PO SCH (10:18)
--- NOTE | 2016-07-10 13:02 | Discharge Instructions ---
Discharge Instructions Date of Service Jul 10, 2016. Admission Reason for Admission: Lumbar Spinal Stenosis Discharge Discharge Diagnosis / Problem: Lumbar Spinal Stenosis Discharge Goals Goal(s): Decrease discomfort, Improve function, Increase independence Activity Recommendations Activity Limitations: as noted below Lifting Limitations: no more than 5 pounds Exercise/Sports Limitations: none May Resume Sexual Activity: after follow-up appointment Shower/Bathe: may shower/bathe in 3 days . Instructions / Follow-Up Instructions / Follow-Up ACTIVITY RECOMMENDATIONS: SELF CARE INSTRUCTIONS AFTER THORACIC/LUMBAR FUSIONS 1. You may walk to your tolerance. It is good exercise for your legs and back. Expect some back and intermittent leg aches and pains. 2. You may perform "counter-top" level activities (make a sandwich, marito with a project, etc.). 3. No bending or lifting of more than 10 pounds or back twisting of any nature (roll like a log when turning in bed). 4. You may ride in a car for 20-30 minutes at a time. No driving until after your first visit with your doctor. 5. Frequent changes of position and restricting sitting to 30 minutes at a time will help limit the amount of back spasms and stiffness you may experience. 6. You may discontinue the use of ambulatory aids (cane, crutches, etc.) once your strength and confidence allow. 7. You may district plant engineer the shower and let water strike your incision when you arrive home at least once daily. Do not take a tub bath, sit in a hot tub or go into a swimming pool until after your first recheck in the office. SPECIAL CARE INSTRUCTIONS: VERY IMPORTANT TO READ AND REVIEW A. Your surgical incision has been closed with a cosmetic suture under the skin that will dissolve in about 6 weeks. In 14 days, you can use a pair of clean scissors and cut the suture that is left outside of the skin at the ends of your incision. 1. The small skin tapes can be removed 7 days after surgery if they have not fallen off by that point. 2. You may keep the wound open to air as much as possible to promote healing after post-op day number 5 unless told otherwise by your doctor. 3. If you think the wound looks like it is becoming infected (redness or worsening drainage) and/or you are experiencing fever, chill or worsening back pain and muscle spasms, contact the office so that we may evaluate you as soon as possible. B. Complications are uncommon, but please contact us if you have any signs or symptoms of: 1. wound infection (fever higher than 102.5 degrees F, redness, separation of wound, drainage, or increasing pain from the incision) 2. blood clots in legs (pain, swelling, redness and warmth in legs) 3. urinary tract infection (fever higher than 102.5 degrees F, burning upon urination or increased frequency of urination) 4. nerve problems (inability to walk on your toes or heels, numbness, loss of bowel or bladder control) 5. any other symptoms that concern you C. Please call the office at if you have any concerns or questions about your operation or recovery. D. No smoking! Smoking drastically decreases the chance of a solid fusion. E. Do not take any anti-inflammatory medications (Indocin, Advil, Motrin, Aspirin, Naprosyn, etc.) as these may inhibit the chance of a solid fusion. Tylenol is okay to take for pain. MANAGING PAIN AFTER SPINAL SURGERY 1. Narcotic medication is intended for short-term use and will be provided for surgical pain. Surgical pain usually lasts for a period of 4-6 weeks. Narcotic medication includes Percocet, Vicodin, Darvocet, Tylenol #3 or Lortab. 2. Longer-term pain is more appropriately treated with non-narcotic medication such as Tylenol ES. 3. Muscle spasm is not appropriately treated with narcotics. Muscle relaxers such as Soma, Flexeril or Skelaxin can be used along with Tylenol ES. 4. Remember that we all live with some "aches and pains". This is not unusual or uncommon after an injury or as we get older. a. Back pain is expected and may include muscle spasms for 4 to 6 weeks after surgery. The pain should gradually improve. If the pain worsens for no apparent reason, please contact the office. b. Intermittent leg pain may also be experienced and should not be concerned about unless it worsens for no apparent reason. If so, please contact the office. 5. We will provide appropriate medication within the normal guidelines of their prescribed use. We will also be very cautious and aware of potential abuse and extended duration of patients' medication needs. a. Pain medications are for your comfort and to assist with sleep and rest so that the tissue can heal. They are not provided in order to return to normal activity and should not be used through the day. To do so or worsening pain at night can result from ongoing tissue damage and development of tolerance to the prescribed medicine. 6. Please allow 2-3 days to process refills. Prescriptions will not be mailed but must be picked up at the office. FOLLOW UP VISIT: Keep your scheduled follow-up appointment. Any questions, please call the office at . Current Hospital Diet Patient's current hospital diet: Diabetes Type 2 Diet Discharge Diet Recommended Diet: Diabetes Type 2 Diet Procedures Procedures Performed: L2-L3 Decompression; Extension of Fusion to L2; Bone Marrow Aspirate; Autograft,Allograft, Arteriocyte, Removed Lumbar Hardware L3 Pending Studies Studies pending at discharge: no Laboratory Results Hemoglobin A1c Test 07/09/16 17:00 Range/Units Estimated Average Glucose 131 mg/dl Hemoglobin A1c 6.2 H 4.5-5.6 % Medical Emergencies . Who to Call and When: Medical Emergencies: If at any time you feel your situation is an emergency, please call 911 immediately. . Non-Emergent Contact Non-Emergency issues call your: Surgeon Call Non-Emergent contact if: temperature is above 101, your pain is not controlled, wound has increased drainage, you have any medication questions . "Provider Documentation" section prepared by Melvin Gunn. VTE Core Measure Inpt VTE Proph given/why not?: [place] [place] Drug Monitoring Program Search Results: patient reviewed within database
[2016-07-10] MEDS: ACETAMINOPHEN 500 MG TAB PO PRN (18:47)
[2016-07-10] MEDS: DOCUSATE SODIUM/SENNA 50/8.6MG TAB PO SCH (21:18)
[2016-07-10] MEDS: ATORVASTATIN 20 MG TAB PO SCH (21:18)
[2016-07-10] MEDS: CITALOPRAM 20 MG TAB PO SCH (21:20)
[2016-07-10] MEDS: LORAZEPAM 0.5 MG TAB PO PRN (23:58)
[2016-07-11] MEDS: ACETAMINOPHEN 500 MG TAB PO PRN (04:08)
[2016-07-11] MEDS: CYANOCOBALAMIN 500 MCG TAB (VIT B-12) PO SCH (06:30)
[2016-07-11] MEDS: POLYETHYLENE (MIRALAX) 17 GM PACK PO SCH ×4 (06:31→22:56)
[2016-07-11] MEDS: LEVO PO SCH ×3 (06:31→16:30)
[2016-07-11] MEDS: CARB PO SCH ×3 (06:31→16:30)
[2016-07-11] MEDS: ENTACAPONE PO SCH ×3 (06:31→16:30)
[2016-07-11 07:25] VITALS: BP 118/68; PULSE 62; TEMP 36.6; O2SAT 95
[2016-07-11] MEDS: INSULIN ASPART 100 UNITS/ML 3 ML PEN SC SCH ×4 (08:00→21:00)
[2016-07-11] MEDS: POTASSIUM CHLORIDE 20 MEQ TABCR PO SCH ×2 (08:37→17:30)
[2016-07-11] MEDS: RASAGILINE 0.5 MG TAB PO SCH (08:38)
[2016-07-11] MEDS: GABAPENTIN 600 MG TAB PO SCH ×3 (08:38→17:31)
[2016-07-11] MEDS: ASPIRIN 81 MG ECTAB PO SCH (08:38)
[2016-07-11] MEDS: ROPINIROLE HYDROCHLORIDE PO SCH (08:39)
[2016-07-11] MEDS ORDERED: KETOROLAC TROMETHAMINE 15 MG/ML VIAL ONE (08:51)
[2016-07-11] MEDS ORDERED: NURSING VERBAL MED ORDER ONE (09:00)
[2016-07-11] MEDS ORDERED: KETOROLAC TROMETHAMINE 15 MG/ML VIAL IV. PRN (09:15)
--- NOTE | 2016-07-11 09:26 | Orthopedic Progress Note ---
Orthopedic Progress Note Date of Service Jul 11, 2016. Subjective Post OP Day: 2 Reports: feeling well, pain controlled w PO medications Objective calves soft nontender, N/V intact, dressing C/D/I, A&O x3, hemovac drainage Date Time Temp Pulse Resp B/P Pulse Ox O2 Delivery O2 Flow Rate FiO2 07/11/16 07:25 36.6 62 18 118/68 95 Room Air 07/10/16 23:50 Room Air 07/10/16 23:20 36.4 67 22 105/78 94 Room Air 07/10/16 16:00 92 Room Air 07/10/16 15:54 36.5 60 20 108/65 92 Room Air 07/10/16 15:22 102/50 07/10/16 12:42 95 Room Air 07/10/16 12:35 36.5 63 17 120/68 100 Nasal Cannula 2.0 07/10/16 11:30 98 Nasal Cannula 2.0 Assessment & Plan Assessment: looks good POD 2, scd's, bowel regimen, d/c wednesday to rehab? if medically stable , medicine on board Discharge Planning Discharge Planning: home Pain Management: Oxy IR DVT Prophylaxis: SCDs
[2016-07-11] MEDS: TRAMADOL HCL 50 MG TAB PO PRN ×2 (11:31→22:55)
--- NOTE | 2016-07-11 14:20 | Progress Note ---
Subjective Date of Service: Jul 11, 2016. Subjective Pt evaluation today including: conversation w/ patient, conversation w/ family , physical exam, lab review, conversation w/ insurance consultant, review of inpatient medication list Pain: pain is 5-6 out of 10 PO Intake: adequate Voiding: no voiding problems pain is moderate this AM, surgery aware and will manage eating well, had a small BM, no nausea, urinating well ambulating with assistance to go to rehab tomorrow Review of Systems Constitutional: + fatigue, + weakness Musculoskeletal: + joint pain (back) All Other Systems: Reviewed and Negative Medications Current Inpatient Medications Medications (Trade) Dose Ordered Sig/Lara Route Start Time Stop Time Status Last Admin Dose Admin Amiloride/HCTZ (Moduretic 5-50MG Tab) 1 tab QAM PO 07/10/16 09:00 08/09/16 08:59 Future Hold Aspirin (Ecotrin Tab) 81 mg QAM PO 07/10/16 09:00 08/09/16 08:59 07/11/16 08:38 81 MG Atorvastatin Calcium (Lipitor Tab) 20 mg HS PO 07/09/16 21:00 08/08/16 20:59 07/10/16 21:18 20 MG Citalopram Hydrobromide (celeXA TAB) 10 mg HS PO 07/09/16 21:00 08/08/16 20:59 07/10/16 21:20 10 MG Rasagiline 1 mg 1 mg QAM PO 07/10/16 09:00 08/09/16 08:59 07/11/16 08:38 1 MG Promethazine HCl/ Sodium Chloride (Phenergan Inj/ Nss 50ml) 50.5 ml @ 202 mls/hr Q6H PRN IV 07/09/16 12:00 08/08/16 11:59 Ondansetron HCl (Zofran Inj) 4 mg Q6H PRN IV 07/09/16 12:00 08/08/16 11:59 Metoclopramide HCl (Reglan Inj) 10 mg Q6H PRN IV 07/09/16 12:00 08/08/16 11:59 Lorazepam 0.5 mg 0.5 mg Q8H PRN PO 07/09/16 12:00 08/08/16 11:59 07/10/16 23:58 0.5 MG Lorazepam/Syringe (Ativan Inj/ Syringe) 1 ml @ 1 mls/min Q8H PRN IV 07/09/16 12:00 08/08/16 11:59 07/10/16 01:47 1 MLS/MIN Polyethylene (Miralax Powder Packet) 17 gm Q6 PO 07/11/16 06:00 08/10/16 05:59 07/11/16 12:25 17 GM Bisacodyl (Dulcolax Supp) 10 mg DAILY PRN WI 07/09/16 12:00 08/08/16 11:59 Magnesium Hydroxide (Milk Of Magnesia Susp) 30 ml DAILY PRN PO 07/09/16 12:00 08/08/16 11:59 Hydromorphone HCl (Dilaudid Inj) 0.5 mg Q3H PRN IV 07/09/16 12:00 07/23/16 11:59 Future Hold Acetaminophen 1000 mg 1,000 mg Q8H PRN PO 07/09/16 12:00 08/08/16 11:59 07/11/16 04:08 1,000 MG Acetaminophen (Ofirmev Iv) 100 ml @ 400 mls/hr Q8H PRN IV 07/09/16 12:00 08/08/16 11:59 Naloxone HCl (Narcan Inj) 0.1 mg Q5M PRN IV 07/09/16 12:00 08/08/16 11:59 Senna/Docusate Sodium (Senokot S Tab) 2 tab HS PO 07/09/16 21:00 08/08/16 20:59 07/10/16 21:18 2 TAB Sodium Biphosphate/ Sodium Phosphate (Fleet Enema) 132 ml ONE PRN WI 07/09/16 12:00 Al Hydroxide/Mg Hydroxide (Maalox Susp) 30 ml Q6H PRN PO 07/09/16 12:00 08/08/16 11:59 Famotidine (Pepcid Tab) 20 mg Q12 PRN PO 07/09/16 12:00 08/08/16 11:59 Diphenhydramine HCl (Benadryl Cap) 25 mg Q6H PRN PO 07/09/16 12:00 08/08/16 11:59 Hydromorphone HCl (Dilaudid Inj) 1 mg Q3H PRN IV 07/09/16 12:15 07/23/16 12:14 Future Hold Hydralazine HCl (HydrALAZINE INJ) 10 mg Q6H PRN IV. 07/09/16 16:45 08/08/16 16:44 Insulin Aspart (novoLOG ASPART) SLIDING SCALE If C... ACHS SC 07/09/16 17:15 08/08/16 17:14 07/09/16 21:58 1 UNITS Glucose (Glucose 40% Gel) 15-30 GRAMS 15 GRAMS... UD PRN PO 07/09/16 16:45 08/08/16 16:44 Glucose (Glucose Chew Tab) 4-8 Tablets 4 Tabl... UD PRN PO 07/09/16 16:45 08/08/16 16:44 Dextrose (Dextrose 50% 50ML Syringe) 25-50ML OF 50% DW IV FOR... UD PRN IV 07/09/16 16:45 08/08/16 16:44 Glucagon (Glucagon Inj) 1 mg UD PRN SQ 07/09/16 16:45 08/08/16 16:44 Menthol (Nice Guy) 1 guy PRN PRN PO 07/10/16 00:15 08/09/16 00:14 Miconazole Nitrate (Desenex Powder) 1 appln BID PRN EXT 07/10/16 07:15 08/09/16 07:14 07/10/16 09:32 1 APPLN Oxycodone HCl (Roxicodone Immediate Rel Tab) `1-2 TABS FOR PAIN `1 TAB... Q4H PRN PO 07/10/16 10:15 07/24/16 10:14 07/10/16 12:59 5 MG Gabapentin (Neurontin Tab) 1,200 mg TIDM PO 07/10/16 17:45 08/09/16 17:44 07/11/16 12:30 1,200 MG Cyanocobalamin (Vitamin B-12 Tab) 1,000 mcg DAILY@0700 PO 07/11/16 07:00 08/10/16 06:59 07/11/16 06:30 1,000 MCG Non-Formulary Medication (Non-Formulary Patient'S Own Med) 1 ea TID@0700,1100,1630 PO 07/10/16 16:30 08/09/16 16:29 07/11/16 11:25 1 EA Potassium Chloride (Klor-Con Tab) 20 meq BIDM PO 07/10/16 17:45 08/09/16 17:44 07/11/16 08:37 20 MEQ Tramadol HCl (Ultram Tab) 50 mg Q4H PRN PO 07/11/16 09:15 08/10/16 09:14 07/11/16 11:31 50 MG Ketorolac Tromethamine (Toradol Inj) 15 mg Q6H PRN IV. 07/11/16 09:15 07/16/16 09:14 Objective Vital Signs Date Time Temp Pulse Resp B/P Pulse Ox O2 Delivery O2 Flow Rate FiO2 07/11/16 09:00 Room Air 07/11/16 07:25 36.6 62 18 118/68 95 Room Air 07/11/16 07:25 95 Room Air 07/10/16 23:50 Room Air 07/10/16 23:20 36.4 67 22 105/78 94 Room Air 07/10/16 16:00 92 Room Air 07/10/16 15:54 36.5 60 20 108/65 92 Room Air 07/10/16 15:22 102/50 Physical Exam General Appearance: WD/WN, no apparent distress Eyes: normal inspection, EOMI, sclerae normal Neck: supple, no adenopathy, no JVD, trachea midline Respiratory/Chest: chest non-tender, lungs clear, normal breath sounds, no respiratory distress, no accessory muscle use Cardiovascular: regular rate, rhythm, no edema, no gallop, no JVD, no murmur Abdomen: normal bowel sounds, non tender, soft, no organomegaly Extremities: no pedal edema, no calf tenderness, normal capillary refill, pelvis stable, + pertinent finding (lumbar spine tender, decreased ROM due to pain and surgery) Neurologic/Psychiatric: pattern molder II-XII nml as tested, no motor/sensory deficits, alert, normal mood/affect, oriented x 3, + pertinent finding (resting tremor, more pronounced on right side) Skin: normal color, warm/dry, no rash Lymphatic: no adenopathy Laboratory Results Last 24 Hours Test 07/10/16 17:06 07/10/16 20:25 07/11/16 08:19 07/11/16 11:40 Bedside Glucose 139 mg/dl 124 mg/dl 132 mg/dl 109 mg/dl Assessment and Plan 75 y/o female with a history of Parkinson's disease, DM II, hypertension, hyperlipidemia, and depression who presents s/p L2 to L3 decompression and fusion with Dr. Gunn on 07/09 for medical management. L2 to L3 decompression and fusion with Dr. Dr. Lizarraga on 07/09/16 - Postop day #3 - Pain management, DVT prophylaxis, and PT/OT as per primary team - Patient states her pain is moderate but responds to pain medications Parkinson's disease -Continue rasagiline 1 mg PO qd, ropinirole 8 mg PO qd, and carbidopa/levodopa/ entacapone 31.25/125/200 PO TID - right sided resting tremor at baseline, slow gait DM type II -Hold metformin during hospitalization, can resume on d/ca -Insulin sliding scale -Check BSGs q ac and qhs - Hgb A1C=6.2 HTN--stable -Amiloride/HCTZ and Lisinopril resumed with hold parameters, Cr stable on labs yesterday HLD -Continue atorvastatin 20 mg PO qd Depression -Continue Celexa 10 mg PO qd CODE STATUS: FULL CODE Disposition: will sign off, medically stable, plan for d/c tomorrow, can resume all prior medications
[2016-07-11 15:25] VITALS: BP 128/72; PULSE 72; TEMP 36.9; O2SAT 92
[2016-07-11] MEDS: CITALOPRAM 20 MG TAB PO SCH (21:13)
[2016-07-11] MEDS: DOCUSATE SODIUM/SENNA 50/8.6MG TAB PO SCH (21:14)
[2016-07-11] MEDS: ATORVASTATIN 20 MG TAB PO SCH (21:14)
[2016-07-11] MEDS: LORAZEPAM 0.5 MG TAB PO PRN (22:54)
[2016-07-11 22:58] VITALS: BP 140/71; PULSE 73; TEMP 37; O2SAT 94
[2016-07-12] MEDS: POLYETHYLENE (MIRALAX) 17 GM PACK PO SCH ×2 (05:55→12:00)
[2016-07-12] MEDS: TRAMADOL HCL 50 MG TAB PO PRN ×3 (05:55→14:31)
[2016-07-12] MEDS: ENTACAPONE PO SCH ×2 (06:29→11:24)
[2016-07-12] MEDS: LEVO PO SCH ×2 (06:29→11:24)
[2016-07-12] MEDS: CYANOCOBALAMIN 500 MCG TAB (VIT B-12) PO SCH (06:29)
[2016-07-12] MEDS: CARB PO SCH ×2 (06:29→11:24)
[2016-07-12 07:03] VITALS: BP 108/62; PULSE 69; TEMP 37; O2SAT 93
[2016-07-12] MEDS: INSULIN ASPART 100 UNITS/ML 3 ML PEN SC SCH ×2 (08:00→11:59)
[2016-07-12] MEDS: GABAPENTIN 600 MG TAB PO SCH ×2 (08:43→12:40)
[2016-07-12] MEDS: POTASSIUM CHLORIDE 20 MEQ TABCR PO SCH (08:44)
[2016-07-12] MEDS: ASPIRIN 81 MG ECTAB PO SCH (08:44)
[2016-07-12] MEDS: RASAGILINE 0.5 MG TAB PO SCH (08:44)
[2016-07-12] MEDS: ROPINIROLE HYDROCHLORIDE PO SCH (08:44)
[2016-07-12] MEDS ORDERED: ULT50X PO (12:18)
[2016-07-12] MEDS ORDERED: ALPR-411 PO (12:18)
[2016-07-12] MEDS ORDERED: RXC5 PO (12:18)
[2016-07-12 14:06] VITALS: BP 108/62; PULSE 69; TEMP 37; O2SAT 93
--- NOTE | 2016-07-28 11:38 | Discharge Summary ---
Orthopedic Discharge Summary Admission Date/Reason Jul 09, 2016 at 10:00 Lumbar Spinal Stenosis. Discharge Date/Disposition Jul 12, 2016 Rehab Diagnosis Principal Diagnosis: lumbar stenosis Procedure(s) Performed L2-3 decompression and extension of lumbar fusion to L2-3 Consultations Hospitalist Medication Reconciliation New Medications: Oxycodone HCl (Oxycodone HCl) 5 Mg Tab 5-10 MG PO Q4H PRN for Pain, #30 TAB 0 Refills 1 tab for mild to moderate pain 2 tab for moderate to severe pain Tramadol HCl (Tramadol HCl) 50 Mg Tab 50 MG PO Q4H PRN for Pain, #30 TAB 0 Refills Continued Medications: Alprazolam (Xanax) 0.5 Mg Tab 0.5 MG PO Q6H PRN for Anxiety, #30 TAB 0 Refills (This prescription has been renewed) Amiloride/Hctz (Moduretic 5-50MG) 1 Tab Tab 1 TAB PO QAM, TAB Aspirin (Aspirin Low Dose) 81 Mg Tab 81 MG PO QAM Atorvastatin (Lipitor) 20 Mg Tab 20 MG PO HS, TAB Calcium Carbonate-Cholecalcife (Caltrate 600+D) 1 Tab Tab 1 TAB PO HS Cholecalciferol (Vitamin D3) 2,000 Unit Tab 2000 PO QAM Citalopram Hydrobromide (Celexa) 10 Mg Tab 10 MG PO HS, TAB Coenzyme Q10 (Ubidecarenone) (Co Q-10) 400 Mg Cap 600 MG PO BID Cranberry-Vitamin C-Vitamin E (Cranberry Plus Vitamin C) 1 Cap Cap 2 TAB PO TID Cyanocobalamin (Vitamin B-12) 1,000 Mcg Tab 1000 MCG PO QAM, TAB Gabapentin (Neurontin) 600 Mg Tab 1200 MG PO TID, TAB Lactobacillus-Inulin (Culturelle) 1 Cap Cap 1 TAB PO HS Lisinopril (Prinivil) 5 Mg Tab 5 MG PO HS, TAB Metformin Hcl (Metformin Hcl Er) 500 Mg Tab 500 MG PO BID [place]-3 Fatty Acids ([place] Oil-1000) 1 Cap Cap 1000 MG PO BID Potassium Chloride (Klor-Con) 20 Meq Tabcr 20 MEQ PO BID, TAB Rasagiline Mesylate (Azilect) 1 Mg Tab 1 MG PO QAM, TAB LAST DOSE IS 05/28/16 Ropinirole Hydrochloride (Ropinirole Er) 8 Mg Tab 8 MG PO QAM [Carbi/Levod/Entaca] () 1 TAB PO TID CARBIDOPA/LEVODOPA/ENTACAPONE 31.25/125/200 MUST AVOID PROTEINS 8AM 12NOON 4PM Discontinued Medications: Ibuprofen (Motrin) 800 Mg Tab 800 MG PO TID PRN for Pain, TAB Admission Physical Exam As per Admitting History & Physical. Hospital Course She was admitted for elective surgery and underwent the procedure without complications. She remained hemodynamically stable, and had a stable postop hct. She mobilized with PT/OT, had SCDs, had return of bowel function, her pain was controlled with oral meds, and she was discharged in stable condition. medicine followed her while an inpatient. Discharge Instructions Please refer to the electronic Patient Visit Report (Discharge Instructions) for additional information.
--- NOTE | 2016-07-28 12:31 | OPERATIVE REPORT ---
DATE OF OPERATION: 07/09/2016 PREOPERATIVE DIAGNOSES: 1. Previous L3-S1 instrumented fusion. 2. L2-L3 spinal stenosis. 3. L2-L3 degenerative disc disease. POSTOPERATIVE DIAGNOSES: Same. PROCEDURES: 1. L2-L3 decompression with hardware removal bilateral L3 and abigail reapplication L2-L4. 2. Posterolateral fusion L2-L3 with Infuse BMP on a collagen sponge, tricalcium phosphate, local bone and bone marrow aspirate. 3. Right iliac crest bone marrow aspiration, stem cell concentration, application of bone graft. 4. Nonsegmental L2 pedicle screw instrumentation -- bilaterally with K2M Hemet pedicle screws. SURGEON: Dr. Gunn. SCRAPER BURRER: None. ANESTHESIA: General endotracheal anesthesia. COMPLICATIONS: None. ESTIMATED BLOOD LOSS: 175 mL PROCEDURE IN DETAIL: After identification of the patient and operative level, she was brought to the OR where she underwent induction of general anesthesia. She was then positioned prone on Sahil OR table with all bony prominences well padded. Care was taken to avoid pressure on the periorbital area. Lumbosacral area was sterilely prepped and draped in the usual fashion. Antibiotics were administered. Timeout was performed. Level was confirmed and skin incision was made from spinous process of L2 to the superior edge of the hardware at L3-L4. Previous hardware was exposed at L3-L4. Gelpi retractors were placed. The lamina of L2 was identified and marked with fluoroscopy and bone marrow aspirate was taken from right iliac crest via separate stab incision with a Jamshidi needle. This was concentrated with stem cell concentration system and applied to bone graft body rolling machine tender. I then did a laminectomy of L2 with L2-L3 medial facetectomies and decompressed the nerve roots complete with Kerrisons. I was able to pass probe along the pedicles of L2 and L3 after the nerve roots decompressed. I then placed pedicle screws bilaterally into L2 and removed the screws at L3 which were Medicrea, used K2M Hemet pedicle screws to be placed at L2. After placing the screws in the L2 pedicles, I confirmed position with fluoroscopy and lowered the Migue frame to restore lordosis and then connected rods from the L2 screws to the superior rods from the prior fusion where the L3 screws had been removed. The L3 screws were Medicrea, they had been removed, the rods intact. I then used abigail-to-abigail connectors to connect the rods from L2 to the superior edge of the rods protruding from L4. I final tightened the connectors as well as the endcaps in L2. I then placed a crosslink at L2-L3 which was final tightened. I irrigated with bacitracin solution and decorticated transverse process of L2 and fusion mass at L3 bilaterally with a high speed miley as well as the remaining facets at L2-L3. I then packed the lateral gutters with bone graft mixture at L2-L3 consisting of Infuse BMP on a collagen sponge, tricalcium phosphate, local bone and bone marrow aspirate. Then closed in a layered fashion over EDI drain. All sponge and needle counts were correct at the end of the case. Final x-rays were obtained at the end of the case. I attest to the content of the Intraoperative Record and any orders documented therein. Any exceptio ns are noted below.
== END 2016-07-12 15:15 | DRG 460 ==
LOC: ENRESERVTM → ENRESERVDT → C.ACU 07:55 → C.3E 10:00
PROVIDERS: ADMIT Orthopaedic Surgery Orthopaedic Surgery of the Spine; ATTEND Orthopaedic Surgery Orthopaedic Surgery of the Spine
PROC: 07DR3ZZ Extraction of Iliac Bone Marrow, Percutaneous Approach (ICD-10-PCS; principal; 2016-07-09 09:30)
PROC: 0SG1071 Fusion of 2 or more Lumbar Vertebral Joints with Autologous Tissue Substitute, Posterior Approach, Posterior Column, Open Approach (ICD-10-PCS; principal; 2016-07-09 09:30)
DX: M48.06 Spinal stenosis, lumbar region (principal); M51.36 Other intervertebral disc degeneration, lumbar region; I10 Essential (primary) hypertension; E78.5 Hyperlipidemia, unspecified; M81.0 Age-related osteoporosis without current pathological fracture; G20 Parkinson's disease; E11.9 Type 2 diabetes mellitus without complications; F32.9 Major depressive disorder, single episode, unspecified; Z98.1 Arthrodesis status